=== PATIENT | male | born 1980 | race Caucasian/White ===

== ENCOUNTER 2022-07-19 14:25 | Emergency (ER) | payer OTHER, SELFPAY ==
[2022-07-19 14:26] VITALS: BP 128/84; PULSE 117; RESP 19; TEMP 36.6; O2SAT 97; BMI 23.0
--- NOTE | 2022-07-19 14:44 | HMH.EDGENADL ---
Discharge Plan Disposition Patient Disposition: Left Against Medical Advice Condition: Good Chief Complaint: Overdose Prescriptions Prescriptions: No Action No Known Home Medications Referrals Follow up/Referrals: Provider,Referral, [Primary Care Provider] - See instructions Clinical Impressions Clinical Impression: Drug overdose Instructions Patient Instructions: DI for Drug Overdose in Adults Print Language Print Language: Lithuanian Discharge ED Provider: Shashank Herron General Adult HPI General Chief complaint: Overdose Stated complaint: OD Time Seen by Provider: 07/19/22 14:48 Mode of Arrival: EMS Source of Information: Patient and EMS Limitations: No Limitations Description of Symptoms (Recalled from ER Triage Doc. by RN): 41 M presents via EMS after IV Heroin overdose. Patient was agonal breathing when [facility] arrived and they assisted with ventilation until EMS arrival. Narcan 2mg IM administered with positive result. Patient reports this is his 2nd or 3rd time OD recently. VSS History of Present Illness HPI narrative: Patient presents to the emergency department by EMS after he reportedly overdosed on opiates prior to arrival patient was given 2 mg of IM Narcan prior to arrival. Nasal trumpet was placed prior to arrival. He was given breathing assistance and brought to the hospital for further evaluation and treatment. The patient admitted that he overdosed on narcotics Related Data Home Medications Medication Instructions Recorded Confirmed No Known Home Medications 07/19/22 07/19/22 [facility] Disclaimer: The information contained in this section may have been updated after the patient was seen, as this information can be updated by other users. Social History Smoking Status: Current some day smoker alcohol intake: never current occupational status: unemployed Travel in the last 8 weeks: Inside the [employer] ROS Obtained: Yes All systems reviewed & no additional complaints except as documented Constitutional Constitutional: Reports other (Unintentional overdose on opiates) Physical Exam General General appearance: alert and in no apparent distress Head Head exam: atraumatic and normocephalic Eye Eye exam: Present normal appearance, PERRL and EOMI Respiratory Respiratory exam: Present normal lung sounds bilaterally and wheezes Cardiovascular Cardiovascular exam: Present regular rate, normal rhythm and normal heart sounds Abdominal Exam Abdominal exam: Present soft Comment: No significant abdominal tenderness. No guarding. Extremities Exam Extremities exam: Present normal inspection and full ROM Neurological Exam Neurological exam: Present alert and oriented X3 Psychiatric Psychiatric exam: Present normal affect and anxious Skin Skin exam: Present warm and dry Medical Decision Making Medical Records Medical records reviewed: Yes I reviewed the patient's medical records. Rocky Inquiry Pt receiving controlled substance: No Rocky was queried for this patient: No Vital Signs: 07/19/22 14:26 Temperature 98 F Temperature Source Oral Pulse Rate [Left] 117 H Respiratory Rate 19 Blood Pressure [Right Arm] 128/84 Blood Pressure Mean [Right Arm] 98 Blood Pressure Source [Right Arm] Automatic Cuff Blood Pressure Position [Right Arm] Supine 02 Sat by Pulse Oximetry 97 Oxygen Delivery Method Room Air Medical Decision Narrative: Patient was evaluated and after I saw the patient he decided to leave AGAINST MEDICAL ADVICE. I encouraged him to stay and told him that he may have his Narcan wears off and may have respiratory difficulty again. He understood this. He was signed out AGAINST MEDICAL ADVICE Critical Care Time Critical Care Time Critical Care Time: No Attestation: On 07/19/22, the high probability of a clinically significant, sudden or life threatening deterioration of the following system(s) required my full and direct
--- NOTE | 2022-07-19 14:47 | PC.NURSE ---
Patient speaking with attending at bedside and states that now his ride is here and he would like to leave AMA. NAD and ambulatory on departure with friend. No IV present.
--- NOTE | 2022-07-19 14:48 | PC.NURSE ---
PT SIGNED OUT AMA
[2022-07-19 14:50] VITALS: BP 130/79; PULSE 113; RESP 18; TEMP 36.6; O2SAT 96
== END 2022-07-19 14:50 | disposition left against medical advice (07) ==
PROVIDERS: Emergency Provider Emergency Medicine
DX: T40.1X1A Poisoning by heroin, accidental (unintentional), initial encounter (principal); F17.210 Nicotine dependence, cigarettes, uncomplicated; X58.XXXA Exposure to other specified factors, initial encounter
CPT/HCPCS: 99285